=== PATIENT | female | born 1940 | race Caucasian/White ===

== ENCOUNTER 2017-11-22 14:32 | Emergency (ER) | payer MEDICARE, BC ==
[2017-11-22 15:10] VITALS: BP 127/73
--- NOTE | 2017-11-22 15:43 | UC ---
Skin Complaint HPI - HPI Summary HPI Summary: Sustained an insect bite to her left calf about 4 days ago. Since then she has developed surrounding redness of the skin, tenderness and swelling. No fever, chest pain, shortness of breath or nausea. - History of Current Complaint Chief Complaint: UCLowerExtremity Time Seen by Provider: 11/22/17 15:18 Stated Complaint: L LEG SKIN COMPLAINT Hx Obtained From: Patient Onset/Duration: Gradual Onset, Lasting Days, Still Present Skin Exposure Onset/Duration: Days Ago Timing: Constant Onset Severity: Moderate Current Severity: Moderate Pain Intensity: 4 Pain Scale Used: 0-10 Numeric - You're welcome Location: Discrete - LEFT LOWER EXTREMITY Character: Pain, Redness Aggravating Factor(s): Touch Alleviating Factor(s): Nothing Associated Signs & Symptoms: Positive: Rash, Tenderness - Allergy/Home Medications Allergies/Adverse Reactions: Allergies Allergy/AdvReac Type Severity Reaction Status Date / Time codeine Allergy Vomiting Verified 11/22/17 14:58 erythritol Allergy Vomiting Verified 11/22/17 14:58 levofloxacin [From Levaquin] Allergy Rash Verified 11/22/17 14:58 omeprazole Allergy Vomiting Verified 11/22/17 14:58 Sulfa (Sulfonamide Allergy Rash Verified 11/22/17 14:58 Antibiotics) aminothiols Allergy Vomiting Uncoded 11/22/17 14:58 Monobactam Antibiotics Allergy Unknown Uncoded 11/22/17 14:58 Reaction Details Home Medications: Home Medications Ascorbic Acid TAB* [Vitamin C TAB*] 500 mg PO TID 11/22/17 [History Confirmed 11/22/17] Methylcellulose [Citrucel] 500 mg PO DAILY 11/22/17 [History Confirmed 11/22/17] Sitagliptin Phosphate [Januvia] 25 mg PO DAILY 11/22/17 [History Confirmed 11/22] Review of Systems Constitutional: Negative Skin: Rash Respiratory: Negative Cardiovascular: Negative Gastrointestinal: Negative Musculoskeletal: Edema All Other Systems Reviewed And Are Negative: Yes PMH/Surg Hx/FS Hx/Imm Hx Endocrine History: Diabetes Cardiovascular History: Hypertension - Surgical History Surgical History: Yes Surgery Procedure, Year, and Place: [facility], colonoscopy, endoscopy, ERCP - Family History Known Family History: Positive: Cardiac Disease, Hypertension, Diabetes Negative: Renal Disease - Social History Alcohol Use: Occasionally Substance Use Type: None Smoking Status (MU): Never Smoked Tobacco Physical Exam Triage Information Reviewed: Yes Appearance: Well-Appearing, No Pain Distress, Well-Nourished Vital Signs: Initial Vital Signs Temp 98.8 F 11/22/17 15:04 Pulse 96 11/22/17 15:04 Resp 16 11/22/17 15:04 BP 127/73 11/22/17 15:04 Pulse Ox 96 11/22/17 15:04 Vital Signs Reviewed: Yes Eyes: Positive: Conjunctiva Clear ENT: Positive: Hearing grossly normal Neck: Positive: Supple Respiratory: Positive: No respiratory distress, No accessory muscle use Cardiovascular: Positive: Pulses Normal Abdomen Description: Positive: Soft Musculoskeletal: Positive: ROM Intact, Edema @ - 1+ PITTING EDEMA LEFT ANKLE, Other: - MODERATE CALF TENDERNESS BILATERALLY. NEG HOMANS Neurological: Positive: Alert Psychological: Positive: Age Appropriate Behavior Skin: Positive: Other - ERYTHEMA LEFT ANKLE CIRCUMFERENTIALLY WITH INSECT BITE SITE POSTERIORLY Course/Dx - Course Course Of Treatment: PATIENT HAS LEFT ANKLE EDEMA AND CALF TENDERNESS. NEGATIVE HOMANS SIGN. DISCUSSED INABILITY TO RULE OUT DVT AND OFFERED TRANSFER TO THE ED FOR FURTHER EVALUATION. PATIENT STATES HER CALF TENDERNESS IS BASELINE FOR HER AND DECLINED TRANSFER TO ED. WOULD LIKE TO BE TREATED FOR SKIN INFECTION ONLY. STATES SHE'LL GO TO THE ED IF HER SYMPTOMS DO NOT IMPROVE OVER THE NEXT 24-48 HOURS. - Diagnoses Provider Diagnoses: CELLULITIS LEFT ANKLE Discharge - Sign-Out/Discharge Documenting (check all that apply): Discharge/Admit/Transfer - Discharge Plan Condition: Stable Disposition: HOME Prescriptions: Cephalexin CAP* [Keflex 500 CAP*] 1,000 mg PO BID #[id number] cap Patient Education Materials: Cellulitis (ED) Referrals: Earl De Oliveira MD [Primary Care Provider] - If Needed Additional Instructions: TAKE THE ANTIBIOTICS FOR THE FULL 10 DAYS. IF YOU DO NOT NOTICE CLEAR IMPROVEMENT AFTER 48 HOURS GO TO THE ED FOR FURTHER EVALUATION. - Billing Disposition and Condition Condition: STABLE Disposition: Home
== END 2017-11-22 15:43 | disposition home or self-care (01) ==
LOC: UCCORT 14:32
DX: L03.116 Cellulitis of left lower limb (principal); Z88.1 Allergy status to other antibiotic agents; Z88.5 Allergy status to narcotic agent; Z88.2 Allergy status to sulfonamides; Z88.8 Allergy status to other drugs, medicaments and biological substances; E11.9 Type 2 diabetes mellitus without complications; I10 Essential (primary) hypertension
CPT/HCPCS: 99212; G0463